=== PATIENT | female | born 1995 | race Caucasian/White ===

== ENCOUNTER 2016-06-08 14:35 | Emergency (ER) | payer OTHER ==
[2016-06-08 21:51] LABS: HEMOGLOBIN 13.1 gm/dl (12.3-15.3); RED BLOOD COUNT 4.12 M/UL (4.00-5.10); WHITE BLOOD COUNT 7.5 K/UL (4.5-11.0)
[2016-06-08 22:06] LABS: BUN/CREATININE RATIO 13 (0-10)
== END 2016-06-08 23:13 | disposition home or self-care (01) ==
LOC: ER1 14:35
PROVIDERS: Specialist/Technologist Athletic Trainer
DX: R51 Headache (principal); N39.0 Urinary tract infection, site not specified
CPT/HCPCS: 36415; 70450; 80053; 81001; 83690; 84703; 85025; 93005; 96361; 96374; 96375; 99284; J0696; J1200; J2765; J7030; J7050

== ENCOUNTER → 2020-04-18 | Outpatient (CLI) | payer OTHER ==
[~2020-04-18] MED LIST: CEFUROXIME500 MG PO; DELSYM30 MG/5 ML PO; MACROBID 100 M100 M1 PO; ONDANSETRON ODT4 MG SL; PANTOPRAZOLE SO40 MG PO; ZOFRAN4 MG PO
== END ==
LOC: US 12:30
DX: M79.604 Pain in right leg (principal)
CPT/HCPCS: 93926

== ENCOUNTER → 2020-04-26 | Outpatient (CLI) | payer OTHER ==
[2020-04-26 13:29] LABS: HEMOGLOBIN 14.2 gm/dl (12.3-15.3); RED BLOOD COUNT 4.44 M/UL (4.00-5.10); WHITE BLOOD COUNT 7.3 K/UL (4.5-11.0)
[2020-04-26 13:53] LABS: BUN/CREATININE RATIO 15 (0-10)
== END ==
LOC: LAB 12:53
PROVIDERS: Physician Assistant
DX: E53.8 Deficiency of other specified B group vitamins (principal); E55.9 Vitamin D deficiency, unspecified; D50.9 Iron deficiency anemia, unspecified; Z13.220 Encounter for screening for lipoid disorders; Z13.1 Encounter for screening for diabetes mellitus; Z13.29 Encounter for screening for other suspected endocrine disorder
CPT/HCPCS: 36415; 80053; 80061; 82607; 82728; 83540; 83550; 84439; 84443; 85025

== ENCOUNTER 2020-11-30 07:38 | Emergency (ER) | payer OTHER ==
[2020-11-30] MEDS ORDERED: IBUPROFEN800 MG PO (09:08)
[2020-11-30] MEDS ORDERED: MEDROL DOSEPAK 24 MG PO (09:08)
[2020-11-30] MEDS ORDERED: PROAIR HFA8.5 GM INH (09:09)
== END 2020-11-30 09:49 | disposition home or self-care (01) ==
LOC: ER1 07:38
DX: J06.9 Acute upper respiratory infection, unspecified (principal); Z88.8 Allergy status to other drugs, medicaments and biological substances; Z20.822 Contact with and (suspected) exposure to COVID-19
CPT/HCPCS: 71045; 93005; 96372; 99284; J1100; J1885; U0003

== ENCOUNTER 2020-12-16 16:21 | Emergency (ER) | payer OTHER ==
[~2020-12-16 16:21] MED LIST changes: +IBUPROFEN800 MG PO; +MEDROL DOSEPAK 24 MG PO; +PROAIR HFA8.5 GM INH
[2020-12-16 17:58] LABS: HEMOGLOBIN 14.3 gm/dl (12.3-15.3); RED BLOOD COUNT 4.58 M/UL (4.00-5.10); WHITE BLOOD COUNT 8.3 K/UL (4.5-11.0)
[2020-12-16 18:14] LABS: BUN/CREATININE RATIO 13 (0-10)
[2020-12-16] MEDS ORDERED: PULMICORT FLEX90 MCG INH (19:34)
[2020-12-16] MEDS ORDERED: ZITHROMAX250 MG PO (19:34)
[2020-12-16] MEDS ORDERED: PREDNISONE20 MG PO (19:34)
== END 2020-12-16 19:50 | disposition home or self-care (01) ==
LOC: ER1 16:21
PROVIDERS: Physician Assistant Medical
DX: R05.9 Cough, unspecified (principal); R51.9 Headache, unspecified; Z20.822 Contact with and (suspected) exposure to COVID-19; I10 Essential (primary) hypertension
CPT/HCPCS: 71045; 80053; 85025; 99283; U0002

== ENCOUNTER 2021-01-24 09:40 | Emergency (ER) | payer OTHER ==
[~2021-01-24 09:40] MED LIST changes: +PREDNISONE20 MG PO; +PULMICORT FLEX90 MCG INH; +ZITHROMAX250 MG PO
[2021-01-24] MEDS ORDERED: AUGMENTIN 875-1 EACH PO (10:21)
== END 2021-01-24 10:35 | disposition home or self-care (01) ==
LOC: ER1 09:40
DX: K04.7 Periapical abscess without sinus (principal)
CPT/HCPCS: 41008; 99282

== ENCOUNTER 2021-03-06 13:11 | Emergency (ER) | payer OTHER ==
[~2021-03-06 13:11] MED LIST changes: +AUGMENTIN 875-1 EACH PO
[2021-03-06 14:16] LABS: HEMOGLOBIN 14.7 gm/dl (12.3-15.3); RED BLOOD COUNT 4.89 M/UL (4.00-5.10); WHITE BLOOD COUNT 2.9 K/UL (4.5-11.0)
[2021-03-06 14:41] LABS: BUN/CREATININE RATIO 6 (0-10)
[2021-03-06] MEDS ORDERED: ZOFRAN ODT 4 MG4 MG PO (16:10)
== END 2021-03-06 16:45 | disposition home or self-care (01) ==
LOC: ER1 13:11
PROVIDERS: Physician Assistant
DX: U07.1 COVID-19 (principal); D72.829 Elevated white blood cell count, unspecified; L98.9 Disorder of the skin and subcutaneous tissue, unspecified
CPT/HCPCS: 0240U; 71045; 80053; 83605; 85025; 87040; 99283

== ENCOUNTER → 2021-07-10 | Outpatient (CLI) | payer OTHER ==
[~2021-07-10] MED LIST changes: +ZOFRAN ODT 4 MG4 MG PO
== END ==
LOC: RAD 06:50
DX: M25.561 Pain in right knee (principal); M17.11 Unilateral primary osteoarthritis, right knee
CPT/HCPCS: 73560

== ENCOUNTER → 2021-10-20 | Outpatient (CLI) | payer OTHER | LOC: EMI 08:00 | DX: G43.009 Migraine without aura, not intractable, without status migrainosus (principal) | CPT/HCPCS: 70551 ==

== ENCOUNTER 2021-11-16 14:48 | Emergency (ER) | payer OTHER ==
[2021-11-16] MEDS ORDERED: PREDNISONE 50 M50 MG PO (18:01)
== END 2021-11-16 18:26 | disposition home or self-care (01) ==
LOC: ER1 14:48
DX: T78.1XXA Other adverse food reactions, not elsewhere classified, initial encounter (principal); Z88.8 Allergy status to other drugs, medicaments and biological substances
CPT/HCPCS: 96374; 96375; 99283; J2930